=== PATIENT | female | born 1980 | race Caucasian/White ===

== ENCOUNTER 2020-11-06 04:21 | Outpatient (CLI) | payer OTHER, SELFPAY ==
--- NOTE | 2020-11-06 | DI.US_ITS ---
EXAM: US PELVIS TRANSVAGINAL CLINICAL HISTORY: H/O RT OVARIAN CA AND RSO,H/O LT OVARIAN CYST, TECHNIQUE: Ultrasound of the pelvis was performed both transabdominal and transvaginal. COMPARISON: No exams were available for comparison FINDINGS: UTERUS: Measures 7.2 cm length x 4.2 cm AP x 5 point cm wide. There is a small anterior myometrial fibroid measuring 12 x 10 x 12 millimeters Endometrial thickness measures 5-6 mm. There is no fluid in the endometrial canal. CERVIX: There are no obvious nabothian cysts. RIGHT OVARY: Surgically absent LEFT OVARY: Measures 6 x 4.4 x 5.4 cm There is a large well-defined mass in the left ovary measuring 5 x 4 x 4.2 cm having the appearance p robable hemorrhagic cyst. No calcification therein. No surrounding free fluid. CUL-DE-SAC: No free fluid evident. IMPRESSION: 1. The right ovary is surgically absent. 2. There is 5 x 4 x 4.2 cm mass in left ovary which has appearance of a probable hemorrhagic cyst but requires close follow-up, particularly given the history here. 3. Small anterior myometrial fibroid noted. No significant endometrial findings. There is no free fluid. DATA REPOSITORY:
== END 2020-11-06 04:41 ==
PROVIDERS: Visit Provider Obstetrics & Gynecology
DX: Z90.721 Acquired absence of ovaries, unilateral (principal); N83.8 Other noninflammatory disorders of ovary, fallopian tube and broad ligament; Z85.43 Personal history of malignant neoplasm of ovary
CPT/HCPCS: 76830; 76856

== ENCOUNTER 2025-08-12 15:19 | Outpatient (CLI) | payer SELFPAY ==
[2025-08-13 18:10] LABS: HBs Antibody, Quant 379.3 mIU/mL (See Note); Hepatitis B Surface Ab Positive (See Note)
[2025-08-14 10:43] LABS: Rubella IgG Ab (UVM) Positive (See Note)
[2025-08-14 12:16] LABS: TB Interpretation Negative (Negative); TB1 Ag minus Nil 0.01 IU/mL; TB2 Ag minus Nil 0.04 IU/mL
== END 2025-08-12 15:20 | disposition home or self-care (01) ==
LOC: LBO 15:21
PROVIDERS: Visit Provider Student in an Organized Health Care Education/Training Program
DX: Z02.1 Encounter for pre-employment examination (principal)
CPT/HCPCS: 36415; 86706; 86787; 87340; 86480; 86735; 86762; 86765